=== PATIENT | male | born 1980 | race Caucasian/White ===

== ENCOUNTER 2022-02-02 10:34 | Emergency (ER) | payer OTHER ==
[~2022-02-02] VITALS: Ht 170.2 cm; Wt 84.1 kg
[2022-02-02 11:14] VITALS: BP 126/80; TEMP 98.5
[2022-02-02] MEDS ORDERED: CEPHALEXIN500 M1 PO (14:34)
[2022-02-02] MEDS ORDERED: NAPROSYN500 MG PO (14:34)
[2022-02-02 14:43] VITALS: PULSE 87
== END 2022-02-02 14:47 | disposition home or self-care (01) ==
LOC: COL.ER 10:34
DX: S72.302A Unspecified fracture of shaft of left femur, initial encounter for closed fracture (principal); W45.8XXA Other foreign body or object entering through skin, initial encounter; Y92.59 Other trade areas as the place of occurrence of the external cause; Y99.0 Civilian activity done for income or pay